=== PATIENT | female | born 1990 | race Hispanic/Latino ===

== ENCOUNTER 2025-04-12 20:04 | Inpatient (IN) | payer BC ==
[~2025-04-12] VITALS: Ht 157.5 cm; Wt 63.0 kg
[2025-04-12 20:06] VITALS: TEMP 98
[2025-04-12 20:36] LABS: LEUKOCYTE ESTERASE ,URINE NEGATIVE (NEGATIVE); PROTEIN,URINE DIPSTICK NEGATIVE (NEGATIVE)
[2025-04-12 20:37] LABS: PREGNANCY TEST, URINE NEGATIVE (NEGATIVE); URINE UROBILINOGEN 0.2 mg/dL (0.2 - 1)
[2025-04-12 20:50] LABS: EPITHELIAL CELLS,URINE MODERATE /LPF
[2025-04-12 20:55] LABS: BASOPHILS % 0.2 % (0.0-1.0); EOSINOPHILS % 1.5 % (0.0-6.0); LYMPHOCYTES % 41.3 % (18.0-39.1); MONOCYTES % 8.0 % (4.4-11.3); NEUTROPHILS % 48.8 % (38.7-80.0); RED CELL DISTRIBUTION WIDTH 13.1 % (11.7-14.4)
[2025-04-12] MEDS ORDERED: IOPAMIDOL 370 MG/ML 100 ML INFUS..BTL INJ ONE (21:01)
[2025-04-12 21:11] LABS: EST GLOMERULAR FILTRATION RATE 116.0 ML/MIN (>=60)
[2025-04-12] MEDS ORDERED: ONDANSETRON HCL INJ 2MG/ML 2ML 2 MG/ML VIAL ONE (22:42)
[2025-04-12] MEDS ORDERED: KETOROLAC TROMETHAMINE 30 MG/ML VIAL ONE (22:42)
[2025-04-12] MEDS: KETOROLAC TROMETHAMINE 30 MG/ML VIAL IV STA (23:05)
[2025-04-13] VITALS (9 sets, daily range): BP systolic 124–144; BP diastolic 73–90; PULSE 54–75; RESP 16–20; TEMP 97–98; O2SAT 100
[2025-04-13] MEDS: ONDANSETRON HCL INJ 2MG/ML 2ML 2 MG/ML VIAL IV STA (01:13)
[2025-04-13] MEDS: SODIUM CHLORIDE 0.9% 1000ML 1,000 ML IV SCH (01:13)
[2025-04-13] MEDS: Morphine 4mg INJECTION 4 MG/ML INJ IV PRN (01:14)
[2025-04-13] MEDS ORDERED: ONDANSETRON HCL INJ 2MG/ML 2ML 2 MG/ML VIAL IV PRN ×2 (02:42→15:15)
[2025-04-13] MEDS ORDERED: HYDROXYCHLOROQ200 MG PO (03:13)
[2025-04-13] MEDS ORDERED: NORETHINDRONE0.35 MG (03:13)
[2025-04-13] MEDS ORDERED: PANTOPRAZOLE SO40 MG PO (03:13)
[2025-04-13 05:42] LABS: BASOPHILS % 0.4 % (0.0-1.0); EOSINOPHILS % 1.6 % (0.0-6.0); LYMPHOCYTES % 56.1 % (18.0-39.1); MONOCYTES % 7.4 % (4.4-11.3); NEUTROPHILS % 34.3 % (38.7-80.0); RED CELL DISTRIBUTION WIDTH 13.2 % (11.7-14.4)
[2025-04-13 06:12] LABS: EST GLOMERULAR FILTRATION RATE 118 ML/MIN (>=60)
[2025-04-13] MEDS ORDERED: FENTANYL CITRATE/PF 100MCG/2 ML INJ ONE ×2 (12:38→15:09)
[2025-04-13] MEDS ORDERED: ONDANSETRON HCL INJ 2MG/ML 2ML 2 MG/ML VIAL ONE (12:38)
[2025-04-13] MEDS ORDERED: LIDOCAINE HCL 2% LOCAL INJ 5 ML SDV VIAL INJ ONE (12:38)
[2025-04-13] MEDS ORDERED: ROCURONIUM BROMIDE 1 ML IV ONE (12:38)
[2025-04-13] MEDS ORDERED: DEXAMETHASONE SOD PHOS INJ 4 MG/ML SDV ONE ×2 (12:38→14:07)
[2025-04-13] MEDS ORDERED: PROPOFOL IV EMULSION 10 MG/ML 20 ML VIAL ONE (12:39)
[2025-04-13] MEDS ORDERED: MIDAZOLAM HCL 2 MG/2 ML VIAL ONE (12:39)
[2025-04-13] MEDS ORDERED: FAMOTIDINE 20 MG/2 ML VIAL IV ONE (13:52)
[2025-04-13] MEDS ORDERED: METOCLOPRAMIDE HCL 10 MG/2ML VIAL ONE (14:07)
[2025-04-13] MEDS ORDERED: SEVOFLURANE INHAL SOLN 250 ML PEN BTL ONE (14:13)
[2025-04-13] MEDS ORDERED: ACETAMINOPHEN 1000 MG/100 ML 100 ML IV ONE (14:13)
[2025-04-13] MEDS ORDERED: EPHEDRINE SULFATE INJ 50 MG/ML VIAL ONE (14:28)
[2025-04-13] MEDS ORDERED: GLYCOPYRROLATE INJ 0.2 MG/ML VIAL ONE (14:28)
[2025-04-13] MEDS ORDERED: SUGAMMADEX SODIUM 200 MG/2 ML VIAL IV ONE (14:52)
[2025-04-13] MEDS ORDERED: KETOROLAC TROMETHAMINE 30 MG/ML VIAL IV PRN (15:15)
[2025-04-13] MEDS: HYDROCODONE/APAP 7.5MG-325MG 1 EA TAB PO PRN (17:42)
[2025-04-14 00:06] VITALS: BP 131/79; PULSE 61; RESP 18; TEMP 97.5; O2SAT 100
[2025-04-14 04:00] VITALS: BP 118/81; PULSE 74; RESP 17; TEMP 98; O2SAT 100
[2025-04-14 05:21] LABS: BASOPHILS % 0.3 % (0.0-1.0); EOSINOPHILS % 0.0 % (0.0-6.0); LYMPHOCYTES % 14.8 % (18.0-39.1); MONOCYTES % 2.1 % (4.4-11.3); NEUTROPHILS % 82.2 % (38.7-80.0); RED CELL DISTRIBUTION WIDTH 12.9 % (11.7-14.4)
[2025-04-14 06:21] LABS: EST GLOMERULAR FILTRATION RATE 117.0 ML/MIN (>=60)
[2025-04-14 08:10] VITALS: BP 118/83; PULSE 75; RESP 18; TEMP 97.6; O2SAT 100
[2025-04-14 08:26] VITALS: BP 118/83; PULSE 75; RESP 18; TEMP 97.6; O2SAT 100
[2025-04-14 12:24] VITALS: BP 121/84; PULSE 51; RESP 19; TEMP 98.2; O2SAT 100
== END 2025-04-14 14:30 | disposition home or self-care (01) | DRG 399 ==
LOC: ER 20:10 → ERHOLD 23:25 → MED/SURG 04-13 02:30
PROVIDERS: ADMIT Internal Medicine; ATTEND Internal Medicine
PROC: 0DTJ4ZZ Resection of Appendix, Percutaneous Endoscopic Approach (ICD-10-PCS; principal; 2025-04-13 13:52)
DX: K35.30 Acute appendicitis with localized peritonitis, without perforation or gangrene (principal); R33.9 Retention of urine, unspecified; I10 Essential (primary) hypertension; M32.9 Systemic lupus erythematosus, unspecified
CPT/HCPCS: 36415; 74177; 80053; 81001; 81025; 83735; 85025; 88304; 99284; C1766; J1100; J1308; J1885; J2003; J2250; J2270; J2405; J2543; J2765; J7030; Q9967

== ENCOUNTER → 2025-05-26 | Outpatient (REF) | payer BC ==
[~2025-05-26] MED LIST: DIATRIZOATE MEGL/DIATRIZOA SOD 30 ML BTL PO ONE; HYDROXYCHLOROQ200 MG PO; IOPAMIDOL 370 MG/ML 100 ML INFUS..BTL INJ ONE; NORETHINDRONE0.35 MG; PANTOPRAZOLE SO40 MG PO
== END ==
LOC: CT 09:32
PROVIDERS: ATTEND Surgery
DX: R10.31 Right lower quadrant pain (principal); K52.9 Noninfective gastroenteritis and colitis, unspecified
CPT/HCPCS: 74177; 81025; Q9963; Q9967